=== PATIENT | male | born 1955 | race Caucasian/White ===

== ENCOUNTER → 2016-04-07 | Outpatient (CLI) | payer MEDICAID ==
[~2016-04-07] MED LIST: CHOLESTEROL MED; HCT25T PO; HYDR-3454 PO; IBP800T PO; MPR22T TP; PREG300C PO; SULF1TAB35 PO
--- OUTSIDE RECORDS SUMMARY | 2016-04-07 13:40 | XMS REPORT | Continuity of Care Document ---
Author Author [facility] Organization [facility] Address Unknown Phone Unavailable Care Team Providers Care Edge Burnisher Name Role Phone Mandi Pacheco PCP [phone] Source Comments Some departments are not documenting in the electronic medical record. If you do not see the information that you expected, contact Release of Information in the Health Information Management department at [phone] for further assistance in locating additional records.[facility] Active Allergies and Adverse Reactions No Known Allergies Current Medications Prescription Sig. Disp. Refills Start End Date Status Date HYDROcodone/acetaminophen Take 1 Tab by mouth every Active (NORCO; VICODIN) 5-325 mg 4 hours as needed for tablet Pain baclofen (LIORESAL) 10 mg Take 20 mg by mouth three Active tablet times daily. gabapentin (NEURONTIN) Take 800 mg by mouth Active 400 mg capsule three times daily. traZODone (DESYREL) 100 Take 100 mg by mouth at Active mg tablet bedtime daily. fish oil /omega-3 fatty Take 1 Cap by mouth Active acids (SEA-OMEGA) daily. 340/[address](+) Take 40 mg by mouth every Active (NEXIUM) 40 mg capsule morning. Active Problems Problem Noted Date Carpal tunnel syndrome on both sides 02/01/2015 Cervical stenosis of spine 01/05/2015 Facial pain, atypical 01/05/2015 Posterior neck pain 01/05/2015 Occipital neuralgia of left side 01/05/2015 Social History Tobacco Use Types Packs/Day Years Used Date Current Every Day Smoker Cigarettes 1 Smokeless Tobacco: Never Used Alcohol Use Drinks/Week oz/Week Comments Yes 0 Standard 0.0 rarely drinks or equivalent Last Filed Vital Signs Vital Sign Reading Time Taken Blood Pressure 127/77 07/10/2015 11:43 AM CDT Pulse 66 07/10/2015 11:43 AM CDT Temperature - - Respiratory Rate - - Height 1.829 m (6') 07/10/2015 11:43 AM CDT Weight 95.709 kg (211 lb) 07/10/2015 11:43 AM CDT Body Mass Index 28.61 07/10/2015 11:43 AM CDT Oxygen Saturation - - Plan of Care Health Maintenance Due Date Last Done Comments Hepatitis C Screening 1955 Physical (Comprehensive) 1961 Exam Pertussis Vaccine 1965 Tetanus Vaccine 11/16/1971 Colorectal Cancer 2004 Screening Shingles Vaccine 2014 Influenza Vaccine 10/11/2015 Results from Last 3 Months Not on file
--- NOTE | 2016-04-07 15:55 | Diagnostic Imaging Report ---
PROCEDURE: CT cervical spine without contrast. TECHNIQUE: Multiple contiguous axial images were obtained through the cervical spine without the use of intravenous contrast. Sagittal and coronal reformations were then performed. INDICATION: Neck pain. Status post fusion surgery. FINDINGS: There is straightening of the lordotic curvature in the cervical spine. Anterior fusion hardware is seen involving C5 through C7 vertebral bodies with anterior fusion disc cages placed at C5/6 and C6/7. No definite osseous fusion is seen at this time. The facet joints are also not fused. The hardware appears the intact. The vertebral body heights are preserved. There is mild disc height loss at C4/5 level. No widening of the predental space. Degenerative changes at the atlantodental joint with joint spurring seen. There are small posterior osteophytes at C5/6 and C6/7 levels with no significant spinal canal stenosis identified by this CT scan without intrathecal contrast. Uncovertebral and facet joint hypertrophy is seen. There is foraminal stenosis of dthxncnb-kz-nmihrh degree on the right side at C3/4, C4/5, and C5/6 levels. The left foramen demonstrate moderate stenosis at C3/4, mild stenosis at C4/5, and mild stenosis at C5/6 levels. IMPRESSION: 1. Post anterior fusion hardware placement involving the C5 through C7 levels with no definite osseous fusion seen at this time. 2. Neural foraminal narrowing, more prominent on the right side, is seen in the mid cervical spine levels. Dictated by: Dictated on workstation # [id number]
== END ==
LOC: RAD 13:37
PROVIDERS: ATTEND Orthopaedic Surgery Orthopaedic Surgery of the Spine
DX: Z48.89 Encounter for other specified surgical aftercare (principal); Z98.1 Arthrodesis status
CPT/HCPCS: 72125

== ENCOUNTER → 2019-05-13 | Outpatient (CLI) | payer MEDICAID ==
[~2019-05-13] MED LIST changes: -HYDR-3454 PO; +HYDR-3455 PO
--- NOTE | 2019-05-13 17:20 | Diagnostic Imaging Report ---
PROCEDURE: MRI left joint lower extremity without contrast. TECHNIQUE: Multiplanar, multisequence non contrast-enhanced MRI of the left lower extremity was accomplished. INDICATION: Left knee pain. FINDINGS: The anterior cruciate and posterior cruciate ligaments are intact. There is some edema both superficial and deep to the medial collateral ligament; however, it appears to be intact. The biceps femoris, fibular collateral, and iliotibial band are intact. The popliteus tendon remains intact. There is marked chondromalacia in the medial knee joint compartment. There is an oblique tear of the posterior horn of the medial meniscus. There is also pseudo-extrusion of the entire meniscus. Lateral meniscus is grossly normal in signal intensity and morphology. The quadriceps tendon and patellar tendons are intact. There is a small knee joint effusion. There is thinning of the articular cartilage in the lateral knee joint compartment; however, there are no areas of underlying marrow edema. Articular cartilage of the patella is relatively well maintained. 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 Pseudo-extrusion of the medial meniscus which also exhibits an oblique tear through the posterior horn of the medial meniscus. There is edema both superficial and deep to the medial collateral ligament. Small knee joint effusion. Otherwise mild diffuse degenerative change; however, no other significant internal derangement of the knee. Dictated by: Dictated on workstation # [id number]
== END ==
LOC: RAD 14:09
PROVIDERS: ATTEND Physician Assistant
DX: M17.12 Unilateral primary osteoarthritis, left knee (principal); M23.8X2 Other internal derangements of left knee; M25.462 Effusion, left knee
CPT/HCPCS: 73721

== ENCOUNTER → 2020-05-22 | Outpatient (CLI) | payer MEDICARE ==
[~2020-05-22] MED LIST changes: +CATHETER FLUSH 10 ML SYR IV PRN; +HOLD METFORMIN - RECEIVED CONTRAST 20 ML VIAL IV SCH; +IOHEXOL 350 MG/ML 100 ML (OMNIPAQUE 350) VIAL IV ONE; +NS 100 ML (IVPB) BAG IV ONE
[2020-05-22 08:03] LABS: BUN/CREATININE RATIO 11; CREATININE SERUM 1.16 MG/DL (0.60-1.30); GFR ESTIMATED > 60
--- NOTE | 2020-05-22 09:43 | Diagnostic Imaging Report ---
INDICATION: Abdominal aortic aneurysm follow-up. TECHNIQUE: Multiple contiguous axial images were obtained through the abdomen and pelvis after administration of intravenous contrast. 3D MIP reconstructions were made. Auto Exposure Controls were utilized during the CT exam to meet ALARA standards for radiation dose reduction. There is no prior study for comparison. FINDINGS: The visualized portions of the lung bases are clear. There were no pleural fluid collections. There is no free intraperitoneal air. The liver and gallbladder are normal. The spleen, adrenals, and pancreas are normal. Kidneys bilaterally show no hydronephrosis or focal lesions. There is no retroperitoneal mass or adenopathy. CTA images demonstrate the suprarenal aorta to be normal in caliber. The celiac trunk is patent with minor plaquing without significant stenosis. The SMA is also patent with minor plaquing, with no significant stenosis. There are single renal arteries bilaterally which are patent with mild plaquing. The inferior mesenteric artery appears fairly small but is patent. The infrarenal aorta is aneurysmal, with maximal diameter of 3.9 x 3.4 cm. The common iliac arteries show some eccentric plaquing but are not aneurysmal. The internal and external iliac arteries are patent with mild plaquing in the visualized portions. IMPRESSION: There are atherosclerotic changes of the aorta as well as a 3.9 x 3.4 cm aneurysm of the infrarenal segment. There is no evidence of iliac aneurysm. Major aortic branches show mild plaquing but no significant stenosis. There is no abdominal mass or abnormal fluid collection. Dictated by: Dictated on workstation # [id number]
== END ==
LOC: CARD 08:45
PROVIDERS: ATTEND Internal Medicine Cardiovascular Disease
DX: I71.4 Abdominal aortic aneurysm, without rupture (principal); I10 Essential (primary) hypertension
CPT/HCPCS: 36415; 74175; 82565; 84520; 93306

== ENCOUNTER 2020-08-21 11:20 | Emergency (ER) | payer MEDICARE ==
[~2020-08-21] VITALS: Ht 182 cm; Wt 107.0 kg
[~2020-08-21 11:20] MED LIST changes: -CATHETER FLUSH 10 ML SYR IV PRN; -HOLD METFORMIN - RECEIVED CONTRAST 20 ML VIAL IV SCH; -IOHEXOL 350 MG/ML 100 ML (OMNIPAQUE 350) VIAL IV ONE; -NS 100 ML (IVPB) BAG IV ONE; -SULF1TAB35 PO; +SULF1TAB38 PO
[2020-08-21 11:37] LABS: CLARITY,URINE CLOUDY; COLOR,URINE YELLOW; GLUCOSE, URINE (UA) NEGATIVE (NEGATIVE); KETONES,URINE NEGATIVE (NEGATIVE); LEUKOCYTE ESTERASE ,URINE NEGATIVE (NEGATIVE); NITRITE,URINE NEGATIVE (NEGATIVE); PROTEIN,URINE TRACE (NEGATIVE)
[2020-08-21] MEDS ORDERED: KETOROLAC 30 MG/ML VIAL IVP STA (11:37)
[2020-08-21] MEDS ORDERED: NS IV 1000 ML 1,000 ML IV STA (11:37)
--- NOTE | 2020-08-21 11:40 | ED Abdominal Pain ---
General Chief Complaint: Abdominal/GI Problems Stated Complaint: LLQ PAIN/TESTICLE/LT FLANK PAIN; URINARY URGENCY Source of Information: Patient History of Present Illness Date Seen by Provider: Aug 21, 2020 Time Seen by Provider: 11:24 Initial Comments 64-year-old male presenting with complaints of left flank pain. He states this came on suddenly at 830 this morning. He has history of kidney stones but has been since the 90s since he had one. He tried taking hydrocodone at home for the pain without any significant provement. He denies any fever or chills. He does have some pain radiating to his groin and testicle. He has urinary urgency. He denies any blood in his urine. Timing/Duration: 4-6 Hours Severity/Quality: Severe Location: LUQ, LLQ, Flank Radiation: LUQ, LLQ, Flank Activities at Onset: Sleeping Associated Symptoms: No Back Pain, No Chest Pain, No Diaphoresis, No Fever/Chills, No Fatigue, No Headache, No Heartburn; Nausea/Vomiting (nausea with severe pain but no actual vomiting); No Rash, No Shortness of Air, No Swelling/Mass in Abdomen, No Syncope, No Weakness Allergies and Home Medications Allergies Coded Allergies: Penicillins (Verified Allergy, Unknown, 11/21/13) Home Medications Hydrochlorothiazide 25 Mg Tablet, 12.5 MG PO DAILY, (Reported) Hydrocodone/Acetaminophen 1 Each Tablet, 1 EACH PO Q4H PRN for p Prescribed by: JACQUE SANCHEZ MD on 01/14/15 1301 Hydrocodone/Acetaminophen 1 Each Tablet, 1 EACH PO Q6H PRN for PAIN-SEVERE (8- 10) Prescribed by: REBEKA BALL on 08/21/20 1238 Mupirocin 22 Gm Tube, 0 TP DAILY APPLY TO SPARINGLY TO AFFECTED AREA(S) Prescribed by: LACHO ENAMORADO on 07/22/12 1621 Pregabalin 300 Mg Capsule, 300 MG PO BID, (Reported) Tamsulosin HCl 0.4 Mg Cap, 0.4 MG PO DAILY Prescribed by: REBEKA BALL on 08/21/20 1238 Patient Home Medication List Home Medication List Reviewed: Yes Review of Systems Review of Systems Constitutional: No chills, No fever EENTM: No Symptoms Reported Respiratory: No Symptoms Reported Cardiovascular: No Symptoms Reported Gastrointestinal: See HPI Genitourinary: See HPI Musculoskeletal: no symptoms reported Skin: no symptoms reported Psychiatric/Neurological: No Symptoms Reported Endocrine: No Symptoms Reported Hematologic/Lymphatic: No Symptoms Reported Past Qethdvj-Kobzxs-Lmfcta Hx Patient Social History Tobacco Use?: Yes Tobacco type used: Cigarettes Smoking Status: Current Everyday Smoker Use of E-Cig and/or Vaping dev: No Substance use?: No Alcohol Use?: No Pt feels they are or have been: No Immunizations Up To Date Tetanus Booster (TDap): Less than 5yrs Past Medical History Surgery/Hospitalization HX: AAA Sleep Apnea Reproductive Disorders: No Diabetes, Non-Insulin dep Family Medical History No Pertinent Family Hx Physical Exam Vital Signs Vital Signs - First Documented 08/21/20 11:28 Temp 35.9 Pulse 91 Resp 20 B/P (MAP) 145/100 (115) Pulse Ox 98 O2 Delivery Room Air Capillary Refill : Height/Weight/BMI Height: 5'10" Weight: 175lbs. oz. 79.098802wh; BMI Method:Estimated General Appearance: WD/WN, mild distress Respiratory: chest non-tender, lungs clear, normal breath sounds Cardiovascular: normal peripheral pulses, regular rate, rhythm Gastrointestinal: normal bowel sounds, soft, no pulsatile mass Rectal: deferred Extremities: normal range of motion, non-tender, normal capillary refill Back: no CVA tenderness Neurologic/Psychiatric: alert, oriented x 3 Skin: normal color, warm/dry; No rash Progress/Results/Core Measures Results/Orders Lab Results Laboratory Tests Test 08/21/20 11:30 08/21/20 11:35 Range/Units Urine Color YELLOW Urine Clarity CLOUDY Urine pH 6.0 5-9 Urine Specific [place] >=1.030 1.016-1.022 Urine Protein TRACE H NEGATIVE Urine Glucose (UA) NEGATIVE NEGATIVE Urine Ketones NEGATIVE NEGATIVE Urine Nitrite NEGATIVE NEGATIVE Urine Bilirubin 1+ H NEGATIVE Urine Urobilinogen 1.0 < = 1.0 MG/DL Urine Leukocyte Esterase NEGATIVE NEGATIVE Urine RBC (Auto) 3+ H NEGATIVE Urine RBC >100 H /HPF Urine WBC NONE /HPF Urine Squamous Epithelial Cells NONE /HPF Urine Crystals NONE /LPF Urine Bacteria NEGATIVE /HPF Urine Casts NONE /LPF Urine Mucus SMALL H /LPF Urine Culture Indicated NO White Blood Count 7.6 4.3-11.0 10^3/uL Red Blood Count 4.19 L 4.35-5.85 10^6/uL Hemoglobin 13.9 13.3-17.7 G/DL Hematocrit 41 40-54 % Mean Corpuscular Volume 97 80-99 FL Mean Corpuscular Hemoglobin 33 25-34 PG Mean Corpuscular Hemoglobin Concent 34 32-36 G/DL Red Cell Distribution Width 14.6 H 10.0-14.5 % Platelet Count 293 130-400 10^3/uL Mean Platelet Volume 8.7 7.4-10.4 FL Immature Granulocyte % (Auto) 0 % Neutrophils (%) (Auto) 50 42-75 % Lymphocytes (%) (Auto) 39 12-44 % Monocytes (%) (Auto) 7 0-12 % Eosinophils (%) (Auto) 3 0-10 % Basophils (%) (Auto) 1 0-10 % Neutrophils # (Auto) 3.8 1.8-7.8 X 10^3 Lymphocytes # (Auto) 2.9 1.0-4.0 X 10^3 Monocytes # (Auto) 0.6 0.0-1.0 X 10^3 Eosinophils # (Auto) 0.2 0.0-0.3 10^3/uL Basophils # (Auto) 0.1 0.0-0.1 10^3/uL Immature Granulocyte # (Auto) 0.0 0.0-0.1 10^3/uL Sodium Level 137 135-145 MMOL/L Potassium Level 4.1 3.6-5.0 MMOL/L Chloride Level 103 98-107 MMOL/L Carbon Dioxide Level 25 21-32 MMOL/L Anion Gap 9 5-14 MMOL/L Blood Urea Nitrogen 20 H 7-18 MG/DL Creatinine 0.95 0.60-1.30 MG/DL Estimat Glomerular Filtration Rate > 60 BUN/Creatinine Ratio 21 Glucose Level 173 H 70-105 MG/DL Calcium Level 10.2 H 8.5-10.1 MG/DL Corrected Calcium 10.0 8.5-10.1 MG/DL Total Bilirubin 0.2 0.1-1.0 MG/DL Aspartate Amino Transf (AST/SGOT) 13 5-34 U/L Alanine Aminotransferase (ALT/SGPT) 10 0-55 U/L Alkaline Phosphatase 59 40-136 U/L Total Protein 7.1 6.4-8.2 GM/DL Albumin 4.3 3.2-4.5 GM/DL Lipase 24 8-78 U/L My Orders Orders - REBEKA BALL MD Comprehensive Metabolic Panel (08/21/20 11:26) Lipase (08/21/20 11:26) Ua Culture If Indicated (08/21/20 11:26) Ed Iv/Invasive Line Start (08/21/20 11:26) Cbc With Automated Diff (08/21/20 11:26) Ct Abd/Pelvis Wo(Kidney Stone) (08/21/20 11:37) Ketorolac Injection (Toradol Injection) (08/21/20 11:37) Ns Iv 1000 Ml (Sodium Chloride 0.9%) (08/21/20 11:37) Strain Urine (08/21/20 12:31) Vital Signs/I&O 08/21/20 08/21/20 11:28 12:45 Temp 35.9 35.9 Pulse 91 84 Resp 20 20 B/P (MAP) 145/100 (115) 140/92 Pulse Ox 98 98 O2 Delivery Room Air Progress Progress Note #1: Progress Note Patient complains of pain in the left flank and has a history of urinary tract infections and stones. Will obtain a urinalysis as well as labs. Give Toradol for pain. Obtain CT scan to evaluate for kidney stone. Differential diagnosis includes kidney stone with renal colic, diverticulitis, colitis, gastroenteritis, UTI, abdominal muscle strain Progress Note #2: Progress Note Patient reports improved pain after Toradol. His urine did show blood but no definite infection. His CT scan showed a 2 mm stone that was in the distal ureter by the bladder. Counseled on follow-up and return precautions. Since he had already been taking hydrocodone with little to no improvement will prescribe Flomax and a stronger dose of hydrocodone. Counseled to follow-up and return for worsening symptoms Diagnostic Imaging Diagonstic Imaging: CT Plain Films/CT/US/NM/MRI: abdomen, pelvis Comments NAME: JUNIOR ALLEN [facility] REC#: [id number] PT STATUS: REG ER : 1955 PHYSICIAN: REBEKA BALL MD ADMIT DATE: 08/21/20/ER FS Draft Date of Exam:08/21/20 CT ABD/PELVIS WO(KIDNEY STONE) PROCEDURE: CT urinary tract, rule out kidney stone. TECHNIQUE: Multiple contiguous axial images were obtained through the abdomen and pelvis without the use of intravenous contrast. Auto Exposure Controls were utilized during the CT exam to meet ALARA standards for radiation dose reduction. INDICATION: Left flank pain. COMPARISON: CT angiogram abdomen dated 05/22/2020. FINDINGS: There is a punctate 2 mm stone in the distal aspect of the left ureterovesical junction nearly passed into the urinary bladder lumen. This results in mild left upstream hydroureteronephrosis and minimal stranding of the left periureteric fat. There are additional nonobstructing bilateral intrarenal calculi. The largest on the right is in a mid pole calyx at 2 mm. No urinoma or fluid collection. The liver, gallbladder, bile ducts, spleen, adrenals, and pancreas are all negative. There is atherosclerotic infrarenal aortic aneurysmal dilatation, unruptured, measuring an unchanged 3.9 cm in AP dimension. There is noninflamed colonic and sigmoid diverticulosis. The remaining solid and hollow viscera are unremarkable. IMPRESSION: 1. A 2 mm stone in the left UVJ results in mild upstream left-sided hydroureteronephrosis. Additional small punctate intrarenal calculi bilaterally are nonobstructing. 2. Stable caliber of unruptured fusiform infrarenal abdominal aortic aneurysm at 3.9 cm. 3. Noninflamed chronic diverticulosis. Dictated on workstation # [id number] Dict: 08/21/20 1155 Trans: 08/21/20 1205 [id number] Interpreted by: DUKE BERNARD Electronically signed by: Departure Impression Primary Impression: Calculus of distal left ureter Additional Impression: Renal colic on left side Disposition: 01 HOME, SELF-CARE Condition: Improved Departure-Patient Inst. Decision time for Depature: 12:39 Referrals: [facility] (PCP/Family) Primary Care Physician Patient Instructions: Kidney Stone Diet, How to Strain Your Urine, Kidney Stone, Adult ED Add. Discharge Instructions: Stay well hydrated and take Flomax (Tamsulosin) once a day to help with passing your kidney stone. Take the higher strength Hydrocodone for severe pain if needed. Check back with Dr. Ball for continued issues with pain and kidney stones. See your primary provider for further concerns. Strain your urine to see when you pass the stone. All discharge instructions reviewed with patient and/or family. Voiced understanding. Scripts Tamsulosin HCl (Flomax) 0.4 Mg Cap 0.4 MG PO DAILY for renal colic for 5 Days, #5 CAP 0 Refills Prov: REBEKA BALL MD 08/21/20 Hydrocodone/Acetaminophen (Hydrocodone-Acetamin 10-325 mg) 1 Each Tablet 1 EACH PO Q6H PRN for PAIN-SEVERE (8-10) for 3 Days, #12 TAB 0 Refills Prov: REBEKA BALL MD 08/21/20 REBEKA BALL MD Aug 21, 2020 11:40
[2020-08-21 11:47] LABS: BACTERIA,URINE NEGATIVE /HPF; RBC,URINE >100 /HPF
[2020-08-21 11:49] LABS: BASOPHILS % (AUTO) 1 % (0-10); EOSINOPHILS # (AUTO) 0.2 10^3/uL (0.0-0.3); EOSINOPHILS % (AUTO) 3 % (0-10); HEMATOCRIT 41 % (40-54); HEMOGLOBIN 13.9 G/DL (13.3-17.7); LYMPHOCYTES # (AUTO) 2.9 X 10^3 (1.0-4.0); LYMPHOCYTES % (AUTO) 39 % (12-44); MEAN CORPUSCULAR HEMOGLOBIN 33 PG (25-34); MEAN CORPUSCULAR HGB CONC 34 G/DL (32-36); MEAN CORPUSCULAR VOLUME 97 FL (80-99); MEAN PLATELET VOLUME 8.7 FL (7.4-10.4); MONOCYTES # (AUTO) 0.6 X 10^3 (0.0-1.0); MONOCYTES % (AUTO) 7 % (0-12); NEUTROPHILS # (AUTO) 3.8 X 10^3 (1.8-7.8); NEUTROPHILS % (AUTO) 50 % (42-75); PLATELET COUNT 293 10^3/uL (130-400); WHITE BLOOD COUNT 7.6 10^3/uL (4.3-11.0)
[2020-08-21 11:50] LABS: BASOPHILS # (AUTO) 0.1 10^3/uL (0.0-0.1)
[2020-08-21 12:05] LABS: BILIRUBIN,URINE 1+ (NEGATIVE)
--- NOTE | 2020-08-21 12:06 | Diagnostic Imaging Report ---
PROCEDURE: CT urinary tract, rule out kidney stone. TECHNIQUE: Multiple contiguous axial images were obtained through the abdomen and pelvis without the use of intravenous contrast. Auto Exposure Controls were utilized during the CT exam to meet ALARA standards for radiation dose reduction. INDICATION: Left flank pain. COMPARISON: CT angiogram abdomen dated 05/22/2020. FINDINGS: There is a punctate 2 mm stone in the distal aspect of the left ureterovesical junction nearly passed into the urinary bladder lumen. This results in mild left upstream hydroureteronephrosis and minimal stranding of the left periureteric fat. There are additional nonobstructing bilateral intrarenal calculi. The largest on the right is in a mid pole calyx at 2 mm. No urinoma or fluid collection. The liver, gallbladder, bile ducts, spleen, adrenals, and pancreas are all negative. There is atherosclerotic infrarenal aortic aneurysmal dilatation, unruptured, measuring an unchanged 3.9 cm in AP dimension. There is noninflamed colonic and sigmoid diverticulosis. The remaining solid and hollow viscera are unremarkable. IMPRESSION: 1. A 2 mm stone in the left UVJ results in mild upstream left-sided hydroureteronephrosis. Additional small punctate intrarenal calculi bilaterally are nonobstructing. 2. Stable caliber of unruptured fusiform infrarenal abdominal aortic aneurysm at 3.9 cm. 3. Noninflamed chronic diverticulosis. Dictated by: Dictated on workstation # [id number]
[2020-08-21 12:09] LABS: ALANINE AMINOTRANSFERASE 10 U/L (0-55); ALKALINE PHOSPHATASE 59 U/L (40-136); BILIRUBIN,TOTAL 0.2 MG/DL (0.1-1.0); BUN/CREATININE RATIO 21; CALCIUM 10.2 MG/DL (8.5-10.1); CARBON DIOXIDE 25 MMOL/L (21-32); CHLORIDE 103 MMOL/L (98-107); CREATININE SERUM 0.95 MG/DL (0.60-1.30); GFR ESTIMATED > 60; GLUCOSE 173 MG/DL (70-105); POTASSIUM 4.1 MMOL/L (3.6-5.0); SODIUM 137 MMOL/L (135-145)
[2020-08-21 12:10] LABS: ALBUMIN 4.3 GM/DL (3.2-4.5); TOTAL PROTEIN 7.1 GM/DL (6.4-8.2)
[2020-08-21] MEDS ORDERED: HYDR-3820 PO (12:38)
[2020-08-21] MEDS ORDERED: TMSL.4C PO (12:38)
[2020-08-21 12:45] VITALS: BP 140/92
[2020-08-21 12:47] LABS: LIPASE 24 U/L (8-78)
== END 2020-08-21 12:46 | disposition home or self-care (01) ==
LOC: EDUNIT# 11:20 → ER FS 11:23
DX: N13.2 Hydronephrosis with renal and ureteral calculous obstruction (principal); N23 Unspecified renal colic; G47.30 Sleep apnea, unspecified; E11.9 Type 2 diabetes mellitus without complications; F17.210 Nicotine dependence, cigarettes, uncomplicated
CPT/HCPCS: 36415; 74176; 80053; 81000; 83690; 85025

== ENCOUNTER → 2020-08-30 | Outpatient (CLI) | payer MEDICARE ==
[~2020-08-30] MED LIST changes: +HYDR-3820 PO; +TMSL.4C PO
--- NOTE | 2020-08-30 13:54 | Diagnostic Imaging Report ---
INDICATION: Left-sided stone disease. FINDINGS: Radiopaque calcifications project over the bilateral kidneys. There are likely some left renal artery atherosclerotic vascular calcifications as well. The bowel gas pattern is normal. There are atherosclerotic pelvic vascular calcifications as well as a new calcification in the left hemipelvis measuring 3.4 mm in cephalocaudal length. Given its appearance compared to the prior, a distal migration of the left ureteral stone is suspected; correlate clinically. IMPRESSION: 1. Bilateral nephrolithiasis and atherosclerosis. 2. New left pelvic calcification, 3.5 mm, is suspicious for a distal left ureteral stone. Dictated by: Dictated on workstation # [id number]
== END ==
LOC: RAD 12:59
PROVIDERS: ATTEND Urology
DX: N20.2 Calculus of kidney with calculus of ureter (principal); I70.1 Atherosclerosis of renal artery; M61.9 Calcification and ossification of muscle, unspecified
CPT/HCPCS: 74018

== ENCOUNTER → 2022-02-26 | Outpatient (CLI) | payer MEDICARE, MEDICAID ==
--- NOTE | 2022-02-26 12:19 | Diagnostic Imaging Report ---
PROCEDURE: CT lumbar spine without contrast. TECHNIQUE: Multiple contiguous axial images were obtained through the lumbar spine without the use of intravenous contrast. Sagittal and coronal reformations were then performed. Auto Exposure Controls were utilized during the CT exam to meet ALARA standards for radiation dose reduction. INDICATION: Lumbar fusion. Low back pain radiating into right hip. COMPARISON: None. FINDINGS: Grade 1 retrolisthesis of L1 on L2, L2 on L3 and L3 on L4. Vertebral body heights preserved. No acute fractures. Chronic right L3 and L4 transverse process fractures. Visualized pelvis is intact. Bilateral carlos and pedicle screw fixation with interbody fusion at L5-S1. There is also a left foraminotomy at this level. Hardware components are intact. No evidence of loosening. Spondylotic changes likely result in at least moderate spinal canal stenosis at L3-L4 and L4-L5. There is also high-grade bilateral neural foraminal narrowing L4-L5 and on the right at L3-L4. Infrarenal abdominal aortic aneurysm measures at least 4.0 cm in diameter, partially visualized. Moderate atherosclerotic calcifications. Nonobstructing calyceal tip renal stones in the partially visualized right kidney. IMPRESSION: 1. Bilateral carlos and pedicle screw fixation with interbody fusion and left foraminotomy at L5-S1. No evidence hardware failure. 2. Spondylotic changes likely result in high-grade spinal canal stenosis at L3-L4 and L4-L5. Scattered high-grade neural foraminal narrowing. This could be better evaluated with MRI. 3. Infrarenal abdominal aortic aneurysm is partially visualized but measures at least 4.0 cm in diameter. Dictated by: Dictated on workstation # [id number]
== END ==
LOC: RAD 11:04
PROVIDERS: ATTEND Physician Assistant
DX: M47.816 Spondylosis without myelopathy or radiculopathy, lumbar region (principal); M48.02 Spinal stenosis, cervical region; I71.43 Infrarenal abdominal aortic aneurysm, without rupture; Z98.1 Arthrodesis status
CPT/HCPCS: 72131

== ENCOUNTER 2022-03-05 14:29 | Emergency (ER) | payer MEDICARE, MEDICAID ==
--- NOTE | 2022-03-05 16:20 | ED Back Pain ---
General Chief Complaint: Back Problems Stated Complaint: LOWER BACK PAIN Nursing Triage Note: PT AMB TO TRIAGE WITH C/O LOW BACK PAIN THAT STARTED THURSDAY AT HOME. PT STATES IT STATED ON THE L SIDE AND NOW ITS ON THE R SIDE. PT STATES THERE WAS A KNOT ON THE R SIDE YESTERDAY BUT IT IS GONE TODAY Source of Information: Patient History of Present Illness Date Seen by Provider: Mar 05, 2022 Time Seen by Provider: 16:08 Initial Comments PT ARRIVES VIA POV FROM HOME, USING A WALKER TO AMBULATE C/O LOW BACK PAIN PT HAD LUMBAR SPINE SURGERY 08/2021, AND HAS HAD A CT SCAN DONE RECENTLY FOR INCREASED PAIN PT HAS HAD INCREASED PAIN SINCE THURSDAY--STATES "IT FEELS LIKE THE BONES ARE RUBBING AGAINST EACH OTHER" HE TOOK 1 HYDROCODONE 5/325 THIS AM, AND 1 HYDROCODONE 10/325 PRIOR TO ARRIVAL. NO PARESTHESIAS OR MOTOR DEFICITS NO LOSS OF BOWEL OR BLADDER FUNCTION. CT SCAN DONE OUTPATIENT 02/26/22: COMPARISON: None. FINDINGS: Grade 1 retrolisthesis of L1 on L2, L2 on L3 and L3 on L4. Vertebral body heights preserved. No acute fractures. Chronic right L3 and L4 transverse process fractures. Visualized pelvis is intact. Bilateral carlos and pedicle screw fixation with interbody fusion at L5-S1. There is also a left foraminotomy at this level. Hardware components are intact. No evidence of loosening. Spondylotic changes likely result in at least moderate spinal canal stenosis at L3-L4 and L4-L5. There is also high-grade bilateral neural foraminal narrowing L4-L5 and on the right at L3-L4. Infrarenal abdominal aortic aneurysm measures at least 4.0 cm in diameter, partially visualized. Moderate atherosclerotic calcifications. Nonobstructing calyceal tip renal stones in the partially visualized right kidney. IMPRESSION: 1. Bilateral carlos and pedicle screw fixation with interbody fusion and left foraminotomy at L5-S1. No evidence hardware failure. 2. Spondylotic changes likely result in high-grade spinal canal stenosis at L3-L4 and L4-L5. Scattered high-grade neural foraminal narrowing. This could be better evaluated with MRI. 3. Infrarenal abdominal aortic aneurysm is partially visualized but measures at least 4.0 cm in diameter. Other Comments PCP: ASHLEY-SHEKHAR, DR. MARRERO. Allergies and Home Medications Allergies Coded Allergies: Penicillins (Verified Allergy, Unknown, 11/21/13) Patient Home Medication List Home Medication List Reviewed: Yes Hydrochlorothiazide (Hydrochlorothiazide) 25 Mg Tablet, 12.5 MG PO DAILY, (Reported) Entered as Reported by: HEVER LAMA on 07/07/12 1431 Hydrocodone/Acetaminophen (Vicodin 5-300 mg Tablet) 1 Each Tablet, 1 EACH PO Q4H PRN for p Prescribed by: JACQUE SANCHEZ MD on 01/14/15 1301 Hydrocodone/Acetaminophen (Hydrocodone-Acetamin 10-325 mg) 1 Each Tablet, 1 EACH PO Q6H PRN for PAIN-SEVERE (8-10) Prescribed by: REBEKA BALL on 08/21/20 1238 Mupirocin (Bactroban Ointment 22 Gm) 22 Gm Tube, 0 TP DAILY Prescribed by: LACHO ENAMORADO on 07/22/12 1621 Pregabalin (Lyrica) 300 Mg Capsule, 300 MG PO BID, (Reported) Entered as Reported by: RANJIT VERA on 07/22/12 1420 Tamsulosin HCl (Flomax) 0.4 Mg Cap, 0.4 MG PO DAILY Prescribed by: REBEKA BALL on 08/21/20 1238 [Cholesterol Med] , (Reported) Entered as Reported by: RANJIT VERA on 07/22/12 1422 Review of Systems Constitutional: no symptoms reported Genitourinary: no symptoms reported Musculoskeletal: see HPI Skin: no symptoms reported Psychiatric/Neurological: No Symptoms Reported Past Uoccdey-Xtzycq-Pxbxag Hx Patient Social History Tobacco Use?: Yes Tobacco type used: Cigarettes Substance use?: No Alcohol Use?: Yes Alcohol Frequency: Rarely Pt feels they are or have been: No Immunizations Up To Date Tetanus Booster (TDap): Less than 5yrs Influenza Vaccine Up-to-Date: Yes; Up-to-Date First/Initial COVID19 Vaccinat: yes Second COVID19 Vaccination Salvador: yes Third COVID19 Vaccination Date: yes Past Medical History Surgery/Hospitalization HX: AAA back surgery Surgeries: Yes (BACK SURGERY; C-SPINE SURGERY) Orthopedic Respiratory: Yes Sleep Apnea Cardiac: Yes (AAA 4 CM DIAMETER 02/26/22) Aneurysm, Hypertension Neurological: No Reproductive Disorders: No Genitourinary: No Gastrointestinal: No Musculoskeletal: Yes Degenerate Disk Disease, Chronic Back Pain Endocrine: Yes Diabetes, Non-Insulin dep HEENT: No Cancer: No Psychosocial: No Integumentary: No Blood Disorders: No Family Medical History No Pertinent Family Hx Physical Exam Vital Signs Vital Signs - First Documented 03/05/22 03/05/22 14:45 18:05 Temp 36.8 Pulse 90 Resp 18 B/P (MAP) 140/89 (106) O2 Delivery Room Air Capillary Refill : Height, Weight, BMI Height: 5'10" Weight: 175lbs. oz. 79.531931ua; 32.00 BMI Method:Estimated General Appearance: No Apparent Distress, WD/WN, Other (TALKS NON-STOP AT GREAT LENGTH. ) Neck: Normal Inspection Cardiovascular: Regular Rate, Rhythm Respiratory: Normal Breath Sounds Gastrointestinal: Non Tender Back: Decreased Range of Motion, Other (DIFFUSE LOWER BACK TENDERNESS) Extremity: Normal Capillary Refill, Non Tender Neurologic/Psychiatric: Alert, Oriented x3, No Motor/Sensory Deficits, entry level lab technician II- XII Norm as Tested Skin: Normal Color, Warm/Dry; No Rash Progress/Results/Core Measures Results/Orders Lab Results Laboratory Tests Test 03/05/22 16:16 Range/Units Urine Color YELLOW Urine Clarity CLEAR Urine pH 6.0 5-9 Urine Specific [place] 1.025 H 1.016-1.022 Urine Protein NEGATIVE NEGATIVE Urine Glucose (UA) NEGATIVE NEGATIVE Urine Ketones NEGATIVE NEGATIVE Urine Nitrite NEGATIVE NEGATIVE Urine Bilirubin NEGATIVE NEGATIVE Urine Urobilinogen 0.2 < = 1.0 MG/DL Urine Leukocyte Esterase NEGATIVE NEGATIVE Urine RBC (Auto) NEGATIVE NEGATIVE Urine RBC NONE /HPF Urine WBC RARE /HPF Urine Squamous Epithelial Cells NONE /HPF Urine Crystals NONE /LPF Urine Bacteria NEGATIVE /HPF Urine Casts NONE /LPF Urine Mucus NEGATIVE /LPF Urine Culture Indicated NO My Orders Orders - GABRIEL LIMA DO Ua Culture If Indicated (03/05/22 16:09) Ct Lumbar Spine Wo (03/05/22 16:50) Vital Signs/I&O 03/05/22 03/05/22 14:45 18:05 Temp 36.8 36.8 Pulse 90 90 Resp 18 18 B/P (MAP) 140/89 (106) 140/89 O2 Delivery Room Air Blood Pressure Mean: 106 Progress Progress Note : Progress Note PT IS ADAMANTLY DEMANDING A REPEAT CT SCAN, EVEN THOUGH HE HAD ONE LAST WEEK. UNEVENTFUL ER STAY REVIEWED PRIOR RECORDS--ALL ARE ER VISITS. ALSO REVIEWED OUTPATIENT TESTS REVIEWED TEST RESULTS WITH PT AND FEMALE WITH HIM DISCUSSED ANTICIPATED COURSE, MEDICATIONS, NEED FOR FOLLOW UP AND RETURN PREC AUTIONS. PT STATES HE HAS PAIN MEDICATION AND MUSCLE RELAXANTS AT HOME Diagnostic Imaging Comments CT LUMBAR SPINE--PER RADIOLOGIST REPORT AT 1801 COMPARISON: 02/26/2022. FINDINGS: Again seen are bilateral interpedicular screws and intervening rods extending from L5 to S1. Interbody device is noted at the disc space. The orthopedic hardware appears intact. Multilevel bilateral facet hypertrophy similar to the recent examination. Old right L3 and L4 transverse process fractures again noted. There is multilevel spondylotic change with at least moderate central canal stenosis at the L3-L4 and L4-L5 levels. There is severe bilateral neural foraminal narrowing at the L4-L5 level and on the right at L3-L4. Within the visualized intra-abdominal structures is diffuse atherosclerotic disease. Again noted is aneurysmal dilatation of the infrarenal aorta. As visualized, it measures at least 3.5 cm in AP dimension, it previously measured 4 cm, given the incomplete visualization on today's examination. IMPRESSION: 1. Multilevel degenerative findings as detailed above similar to the recent examination with no acute process appreciated. Postoperative changes unremarkable. 2. Aneurysmal dilatation of the infrarenal aorta incompletely imaged. Reviewed: Reviewed by Me Departure Impression Primary Impression: Exacerbation of chronic back pain Disposition: HOME, SELF-CARE Condition: Stable Departure-Patient Inst. Decision time for Depature: 18:02 Referrals: SENIA MARRERO DO (PCP/Family) Primary Care Physician Patient Instructions: CHRONIC PAIN, Low Back Pain ED Add. Discharge Instructions: CONTINUE YOUR CURRENT MEDICATIONS PRESCRIBED FOLLOW UP WITH YOUR SURGEON THIS WEEK FOR FURTHER CARE--CALL IN THE MORNING FOR AN APPOINTMENT All discharge instructions reviewed with patient and/or family. Voiced understanding. GABRIEL LIMA DO Mar 05, 2022 16:20
[2022-03-05 16:23] LABS: BILIRUBIN,URINE NEGATIVE (NEGATIVE); CLARITY,URINE CLEAR; COLOR,URINE YELLOW; GLUCOSE, URINE (UA) NEGATIVE (NEGATIVE); KETONES,URINE NEGATIVE (NEGATIVE); LEUKOCYTE ESTERASE ,URINE NEGATIVE (NEGATIVE); NITRITE,URINE NEGATIVE (NEGATIVE); PROTEIN,URINE NEGATIVE (NEGATIVE)
[2022-03-05 16:33] LABS: BACTERIA,URINE NEGATIVE /HPF; WBC,URINE RARE /HPF
--- NOTE | 2022-03-05 17:28 | Diagnostic Imaging Report ---
INDICATION: Low back pain since Thursday, initially left-sided now bilateral. EXAMINATION: Lumbar spine CT, 03/05/2022. All CT scans use one or more of the following dose optimizing techniques: automated exposure control, MA and/or KvP adjustment based on patient size and exam type or iterative reconstruction. COMPARISON: 02/26/2022. FINDINGS: Again seen are bilateral interpedicular screws and intervening rods extending from L5 to S1. Interbody device is noted at the disc space. The orthopedic hardware appears intact. Multilevel bilateral facet hypertrophy similar to the recent examination. Old right L3 and L4 transverse process fractures again noted. There is multilevel spondylotic change with at least moderate central canal stenosis at the L3-L4 and L4-L5 levels. There is severe bilateral neural foraminal narrowing at the L4-L5 level and on the right at L3-L4. Within the visualized intra-abdominal structures is diffuse atherosclerotic disease. Again noted is aneurysmal dilatation of the infrarenal aorta. As visualized, it measures at least 3.5 cm in AP dimension, it previously measured 4 cm, given the incomplete visualization on today's examination. IMPRESSION: 1. Multilevel degenerative findings as detailed above similar to the recent examination with no acute process appreciated. Postoperative changes unremarkable. 2. Aneurysmal dilatation of the infrarenal aorta incompletely imaged. Dictated by: Dictated on workstation # [id number]
[2022-03-05 18:05] VITALS: BP 140/89
== END 2022-03-05 18:05 | disposition home or self-care (01) ==
LOC: EDUNIT# 14:29 → ER 14:32
DX: M54.50 Low back pain, unspecified (principal); G89.29 Other chronic pain; F17.210 Nicotine dependence, cigarettes, uncomplicated; Z98.890 Other specified postprocedural states
CPT/HCPCS: 72131; 81000

== ENCOUNTER → 2022-03-14 | Outpatient (CLI) | payer MEDICARE, MEDICAID ==
--- NOTE | 2022-03-14 12:05 | Diagnostic Imaging Report ---
PROCEDURE: MRI lumbar spine. TECHNIQUE: Multiplanar, multisequence MRI of the lumbar spine was performed without contrast. DATE: March 14, 2022. COMPARISON: CT lumbar spine March 05, 2022. INDICATION: 66-year-old male, low back pain. FINDINGS: There is posterior spinal fusion hardware spanning L5-S1. There is disc spacer material at this level. There is no evidence of a diffuse marrow infiltrating or replacing process. There are multilevel endplate degenerative related signal changes. There is mild disc height loss at L1-L2 and L2-L3 as well as at L3-L4 and L4-L5. There is moderate disc height loss at L5-S1. The visualized cord and conus medullaris is unremarkable and terminates at the L1 level. L1-L2: There is mild diffuse disc bulge eccentric to the right. The facet joints and ligamentum flavum are unremarkable. There is no foraminal narrowing. There is no spinal canal stenosis. L2-L3: There is diffuse disc bulge. There is a superimposed right lateral recess disc extrusion causing severe narrowing of the right lateral recess. The facet joints and ligamentum flavum are unremarkable. There is mild right foraminal narrowing. There is moderate spinal canal stenosis. L3-L4: There is diffuse disc bulge. There are bilateral facet degenerative changes without ligamentum flavum hypertrophy. There is moderate to severe bilateral foraminal narrowing. There is no high-grade spinal canal stenosis. L4-L5: There is diffuse disc bulge. There is an annular tear. There is mild narrowing of both lateral recesses. The facet joints and ligamentum flavum are unremarkable. There is moderate to severe bilateral foraminal narrowing. There is mild spinal canal stenosis. L5-S1: There is no disc bulge. The facet joints and ligamentum flavum are unremarkable. There is mild right and moderate to severe left foraminal narrowing. There is no spinal canal stenosis. IMPRESSION: 1. Multilevel disc and facet degenerative changes of the lumbar spine as described in detail level by level above. 2. No identified compression deformity, fracture, or focal concerning bone lesion. Dictated by: Dictated on workstation # [id number]
== END ==
LOC: RAD 07:31
PROVIDERS: ATTEND Orthopaedic Surgery Orthopaedic Surgery of the Spine
DX: M47.816 Spondylosis without myelopathy or radiculopathy, lumbar region (principal); M48.07 Spinal stenosis, lumbosacral region; M51.26 Other intervertebral disc displacement, lumbar region; G89.18 Other acute postprocedural pain
CPT/HCPCS: 72148

== ENCOUNTER → 2022-04-18 | Outpatient (CLI) | payer MEDICARE, MEDICAID ==
--- NOTE | 2022-04-18 11:17 | Diagnostic Imaging Report ---
Indication: Abdominal aortic aneurysm screening Abdominal aortic sonography performed in routine fashion The distal aorta is aneurysmal, with maximal diameter 4.1 x 3.4 cm. Visualized portions of the iliac vessels are not aneurysmal. IMPRESSION: Abdominal aortic aneurysm in the infrarenal segment, with maximal diameter of 4.1 x 3.4 cm. Recommend follow-up to exclude growth, consider follow-up in 6-12 months. Dictated by: Dictated on workstation # [id number]
== END ==
LOC: RAD 09:25
PROVIDERS: ATTEND Physician Assistant
DX: I71.40 Abdominal aortic aneurysm, without rupture, unspecified (principal)
CPT/HCPCS: 76775

== ENCOUNTER 2022-05-16 09:34 | Emergency (ER) | payer MEDICARE, MEDICAID ==
[~2022-05-16] VITALS: Ht 180 cm; Wt 102.7 kg
[2022-05-16] MEDS ORDERED: TRM50T PO ×2 (10:19→10:33)
[2022-05-16] MEDS ORDERED: CYCL5TAB PO ×2 (10:20→10:34)
--- NOTE | 2022-05-16 10:21 | ED General ---
General Chief Complaint: Hip/Pelvic Problems Stated Complaint: RT HIP AND RT KNEE PAIN | NON-INJ Nursing Triage Note: PT REPORTS TO ED WITH C/O RIGHT HIP AND KNEE PAIN. STATES HIP PAIN STARTED TWO WEEKS AGO AND RIGHT KNEE ABOUT FOUR DAYS AGO. DENIES KNOWN INJURY. HX OF BACK SURGERY. PT HAD TO START USING A WALKER TO GET AROUND. PT AMB. TO FT1 WITH WALKER. Source of Information: Patient Exam Limitations: No Limitations History of Present Illness Date Seen by Provider: May 16, 2022 Time Seen by Provider: 10:05 Initial Comments 66-year-old male presents to the emergency department today for right hip and low back pain. Symptoms present for about 2 weeks acute worse however he tells me he has had the symptoms off and on for several months. In August he had back surgery for similar symptoms. He states he was seen here about a month ago and had a CT scan which showed stenosis above the level of his previous surgery. This was mild and he is followed up with orthopedics since that time. He has had similar pains in symptoms since that time however symptoms acutely worsen the last 2 weeks. He is taking hydrocodone at home without much relief. He tells me he is also on gabapentin. No new injuries. No loss of bowel or bladder control. No saddle anesthesia. He describes his symptoms as pain in his low back with sharp shooting pains into his right hip and groin intermittently that lasts only a few seconds. He thinks he tweaked his knee a little last week when he was walking and has pain there as well but this is a separate issue from that of his hip. He has been ambulatory since that event. All other systems reviewed and negative except documented per HPI. Voice recognition software was used to help create this chart Allergies and Home Medications Allergies Coded Allergies: Penicillins (Verified Allergy, Unknown, 11/21/13) Patient Home Medication List Home Medication List Reviewed: Yes Hydrochlorothiazide (Hydrochlorothiazide) 25 Mg Tablet, 12.5 MG PO DAILY, (Reported) Entered as Reported by: HEVER LAMA on 07/07/12 1431 Hydrocodone/Acetaminophen (Vicodin 5-300 mg Tablet) 1 Each Tablet, 1 EACH PO Q4H PRN for p Prescribed by: JACQUE SANCHEZ MD on 01/14/15 1301 Hydrocodone/Acetaminophen (Hydrocodone-Acetamin 10-325 mg) 1 Each Tablet, 1 EACH PO Q6H PRN for PAIN-SEVERE (8-10) Prescribed by: REBEKA BALL on 08/21/20 1238 Mupirocin (Bactroban Ointment 22 Gm) 22 Gm Tube, 0 TP DAILY Prescribed by: LACHO ENAMORADO on 07/22/12 1621 Pregabalin (Lyrica) 300 Mg Capsule, 300 MG PO BID, (Reported) Entered as Reported by: RANJIT VERA on 07/22/12 1420 Tamsulosin HCl (Flomax) 0.4 Mg Cap, 0.4 MG PO DAILY Prescribed by: REBEKA BALL on 08/21/20 1238 [Cholesterol Med] , (Reported) Entered as Reported by: RANJIT VERA on 07/22/12 1422 Review of Systems Review of Systems Constitutional: see HPI Past Wjoaith-Kbcxtt-Tnslrw Hx Patient Social History Tobacco Use?: Yes Tobacco type used: Cigarettes Smoking Status: Current Everyday Smoker Use of E-Cig and/or Vaping dev: No Substance use?: No Alcohol Use?: No Pt feels they are or have been: No Immunizations Up To Date Tetanus Booster (TDap): Less than 5yrs First/Initial COVID19 Vaccinat: yes Second COVID19 Vaccination [place]: yes Third COVID19 Vaccination Date: yes COVID19 Vaccine Assessment Specialist: dotSyntax Past Medical History Surgery/Hospitalization HX: AAA back surgery Surgeries: Yes (BACK SURGERY; C-SPINE SURGERY) Orthopedic Respiratory: Yes Sleep Apnea Cardiac: Yes (AAA 4 CM DIAMETER 02/26/22) Aneurysm, Hypertension Neurological: No Reproductive Disorders: No Genitourinary: No Gastrointestinal: No Musculoskeletal: Yes Degenerate Disk Disease, Chronic Back Pain Endocrine: Yes Diabetes, Non-Insulin dep HEENT: No Cancer: No Psychosocial: No Integumentary: No Blood Disorders: No Family Medical History Reviewed Nursing Family Hx No Pertinent Family Hx Physical Exam Vital Signs Vital Signs - First Documented 05/16/22 09:54 Temp 36.0 Pulse 81 Resp 18 B/P (MAP) 125/80 (95) Pulse Ox 97 O2 Delivery Room Air Capillary Refill : Less Than 3 Seconds Height, Weight, BMI Height: 5'10" Weight: 175lbs. oz. 79.590725it; 31.00 BMI Method:Estimated General Appearance: No Apparent Distress, WD/WN Neck: Full Range of Motion, Normal Inspection, Non Tender, Supple Respiratory: Chest Non Tender, Lungs Clear, Normal Breath Sounds, No Accessory Muscle Use Cardiovascular: Regular Rate, Rhythm, No Murmur Gastrointestinal: Normal Bowel Sounds, Non Tender, Soft Back: Normal Inspection, Vertebral Tenderness (Tenderness palpation mid to lower lumbar spine. No step-offs or deformity. Surgical scar well-healed.) Extremity: Normal Capillary Refill, Normal Inspection, Normal Range of Motion, Non Tender, No Calf Tenderness, Other (No knee swelling. Joint overall is stable. No bony tenderness. Neurovascular and sensory intact distally. Equal strength bilateral lower extremities. Normal reflexes.) Neurologic/Psychiatric: Alert, Oriented x3, No Motor/Sensory Deficits Skin: Normal Color, Warm/Dry Progress/Results/Core Measures Suspected Sepsis SIRS Temperature: Pulse: 81 Respiratory Rate: 18 Blood Pressure 125 /80 Mean: 95 Results/Orders Vital Signs/I&O 05/16/22 09:54 Temp 36.0 Pulse 81 Resp 18 B/P (MAP) 125/80 (95) Pulse Ox 97 O2 Delivery Room Air Capillary Refill : Less Than 3 Seconds Blood Pressure Mean: 95 Departure Communication (Admissions) Patient is hemodynamically stable with no red flag symptoms. This more chronic issue for him and he request pain control closely. No new injuries. No indication for acute imaging at this time. His knee that he tweaked is overall stable with no bony tenderness and he has been ambulatory on it for a week. No indication for x-rays. We discharged home in stable condition with close primary care and orthopedic follow-up. I prescribed him tramadol as well as Flexeril. He states tramadol was provided for him in the past. I advised him not to take this with any hydrocodone. He states understanding. He is discharged home in stable condition. Supportive care. Impression Primary Impression: Right hip pain Disposition: HOME, SELF-CARE Condition: Stable Departure-Patient Inst. Referrals: SENIA MARRERO DO (PCP/Family) Primary Care Physician Patient Instructions: Joint Pain Add. Discharge Instructions: Stop taking hydrocodone currently and start taking tramadol as you indicated that this is worked better for you in the past. Take the Flexeril as needed for muscle spasms and pain. This may make you drowsy so do not drive or make important decisions while taking it. You will need to call on Donaldo to schedule follow-up with your bone doctor. Return to the emergency department for any loss of bowel or bladder control, numbness where you wipe or if your symptoms change in any way concerning to you. All discharge instructions reviewed with patient and/or family. Voiced understanding. Scripts Cyclobenzaprine HCl (Cyclobenzaprine HCl) 5 Mg Tablet 5 MG PO TID for Muscle Spasms for 5 Days, #15 TAB Prov: VASILE HIGHTOWER DO 05/16/22 Tramadol HCl (Tramadol HCl) 50 Mg Tablet 50 MG PO Q4H PRN for PAIN for 3 Days, #18 TAB Prov: VASILE HIGHTOWER DO 05/16/22 VASILE HIGHTOWER DO May 16, 2022 10:21
[2022-05-16 10:32] VITALS: BP 126/82
== END 2022-05-16 10:32 | disposition home or self-care (01) ==
LOC: EDUNIT# 09:34 → ER 09:36
DX: M25.551 Pain in right hip (principal); M54.50 Low back pain, unspecified; F17.210 Nicotine dependence, cigarettes, uncomplicated; Z98.890 Other specified postprocedural states
CPT/HCPCS: 99281

== ENCOUNTER → 2022-06-23 | Outpatient (CLI) | payer MEDICARE, MEDICAID ==
[~2022-06-23] MED LIST changes: +CATHETER FLUSH 10 ML SYR IVP PRN; +CYCL5TAB PO; +REGADENOSON 0.4 MG/5 ML SYR (LEXISCAN) IV ONE; +TRM50T PO
[2022-06-23 09:15] VITALS: BP 102/69
--- NOTE | 2022-06-23 11:41 | Cardiology Stress Test Report ---
Stress Test Report Date of Procedure/Referring: Date of Procedure: June 23, 2022 PCP Senia Rice DO Admitting Physician Admitting Physician: Attending Physician: Elise Diego Baseline Heart Rate: 69 Baseline Blood Pressure: Blood Pressure Systolic: 102 Blood Pressure Diastolic: 69 Baseline Vitals Vital Signs Date Time Temp Pulse Resp B/P (MAP) Pulse Ox O2 Delivery O2 Flow Rate FiO2 06/23/22 09:15 69 102/69 (80) 95 Baseline EKG: Baseline EKG: NSR Summary After explaining the procedure to the patient, he signed a consent and then brought to the stress nuclear laboratory. Patient received 0.4 mg Lexiscan for stress test, ECG, heart rate and blood pressure were monitored continuously. Resting and stress dose of radio tracer were injected, imaging was acquired and reviewed in short axis, horizontal long axis and vertical long axis views. TID: 1.05 SSS: 4 SDS: 0 EF: 54 Patient tolerated Lexiscan well Diaphragmatic attenuation with fixed defect at the mid to apical inferior wall, overall there is no significant ischemia or infarction on SPECT images Normal left ventricular size, ejection fraction 54% Copy Copies To 1: SENIA RICE BASHAR J MD June 23, 2022 11:41
== END ==
LOC: CARD 07:33
PROVIDERS: ATTEND Physician Assistant
DX: I10 Essential (primary) hypertension (principal)
CPT/HCPCS: 78452; 93017

== ENCOUNTER 2022-09-24 09:36 | Outpatient (RCR) | payer MEDICARE, MEDICAID ==
[~2022-09-24 09:36] MED LIST changes: -CATHETER FLUSH 10 ML SYR IVP PRN; -REGADENOSON 0.4 MG/5 ML SYR (LEXISCAN) IV ONE
== END 2022-10-09 10:05 | disposition home or self-care (01) ==
PROVIDERS: ATTEND Pediatrics
DX: M48.02 Spinal stenosis, cervical region (principal)

== ENCOUNTER 2022-11-12 12:51 | Day surgery (SDC) | payer MEDICARE, MEDICAID ==
[~2022-11-12] VITALS: Ht 180.3 cm; Wt 108.2 kg
[~2022-11-12 12:51] MED LIST changes: +ATOR40TA70 PO; +METF-478 PO; +PANT40TA52 PO; +TRAZ-227 PO
[2022-11-12] MEDS ORDERED: LACTATED RINGERS 1,000 ML 1,000 ML IV STA (13:01)
[2022-11-12 13:10] VITALS: BP 122/69
[2022-11-12] MEDS ORDERED: HURRICAINE EXT TUBE (BENZOCAINE) XX PRN (13:15)
[2022-11-12] MEDS ORDERED: LIDOCAINE JELLY 2% 6 ML SYRINGE MM PRN (13:15)
--- NOTE | 2022-11-12 13:26 | Progress Note-Pre Operative ---
Pre-Operative Progress Note Date of Available H&P: Nov 12, 2022 Date H&P Reviewed: Nov 12, 2022 Time H&P Reviewed: 13:00 History & Physical: No changes noted Pre-Operative Diagnosis: ASHIVN San MD Nov 12, 2022 13:26
--- NOTE | 2022-11-12 13:27 | Discharge Inst-Surgical ---
D/C Lap Instructions-WILLA Follow Up Activity as tolerated High Fiber Diet 25g or more per day Avoid Alcohol, Caffeine, Spicy [place] and Acid foods. Drink 64 fluid oz or more of fluids per day. Symptoms to Report: Fever over 101 degree F, Nausea/Vomiting If any problems/questions: Contact your physician or go to Emergency Room ASHVIN CROUCH MD Nov 12, 2022 13:27
[2022-11-12] MEDS ORDERED: ONDANSETRON INJECTION 4 MG/2 ML (SDV) IVP PRN (13:30)
[2022-11-12] MEDS ORDERED: ONDANSETRON 4 MG ORAL DISSOLVE TABLET PO PRN (13:30)
[2022-11-12] MEDS ORDERED: LIDOCAINE JELLY 2% 6 ML SYRINGE ONE (15:44)
[2022-11-12 16:25] VITALS: BP 94/57
--- NOTE | 2022-11-12 16:28 | Anesthesia-General Post-Op ---
MAC Patient Condition Mental Status/LOC: Same as Preop Cardiovascular: Satisfactory Nausea/Vomiting: Absent Respiratory: Satisfactory Pain: Controlled Complications: Absent Post Op Complications Complications None Follow Up Care/Instructions Patient Instructions None needed. Anesthesiology Discharge Order Discharge Order Patient is doing well, no complaints, stable vital signs, no apparent adverse anesthesia problems. No complications reported per nursing. MANOJ MACAHDO CRNA Nov 12, 2022 16:28
[2022-11-12 16:30] VITALS: BP 92/55
[2022-11-12 16:35] VITALS: BP 98/58
[2022-11-12 17:05] VITALS: BP 125/69
--- NOTE | 2022-11-13 01:31 | OPERATIVE REPORT ---
DATE OF SERVICE: 11/12/2022 ATTENDING PRIMARY CARE PHYSICIAN: Dr. Wong Rice. PREOPERATIVE DIAGNOSIS: Screening colonoscopy. POSTOPERATIVE DIAGNOSES: Mild chronic stage II, external and internal hemorrhoids, multiple small polyps of the rectosigmoid junction as well as the distal sigmoid colon. The majority of polyps were less than 2-3 mm in size. Several were approximately 5-6 mm in size and pedunculated. PROCEDURE: Colonoscopy with snare polypectomy x3. SURGEON: Ashvin Crouch MD ANESTHESIA: Monitored anesthesia care. ESTIMATED BLOOD LOSS: Minimal. FINDINGS: Mild chronic stage II, external and internal hemorrhoids, multiple small polyps of the rectosigmoid junction as well as the distal sigmoid colon. The majority of polyps were less than 2-3 mm in size. Several were approximately 5-6 mm in size and pedunculated. DISPOSITION: The patient tolerated the procedure well. INDICATIONS: The patient is a 66-year-old male referred over to us for screening colonoscopy. He has not had a colonoscopy up to this point in his life. He also does report a family history of colon cancer with his brother having the disease and diagnosed at age 65 years of age. He does not report any major issues with diarrhea, nor constipation as well as no red blood per rectum, nor any dark tarry stools. He recently underwent a Hemoccult test, which was positive. DESCRIPTION OF PROCEDURE: The patient was brought to the endoscopy suite and laid in the left lateral decubitus position. After adequate IV pain and sedative medications and monitored anesthesia care, a digital rectal examination was performed. Mild chronic stage II, external and internal hemorrhoids were identified, not actively edematous nor inflamed and no bleeding. Normal sphincter tone was felt and there were no palpable masses. Prostate gland was palpable and appeared normal. The endoscope was then intubated into the anus, rectum gently insufflated. The endoscope was then advanced through the valves of Pierre of the rectum, there were multiple small what appeared to be hyperplastic polyps, all less than 3 mm in size. Two larger ones were identified and these were removed by snare and electrocautery at the base and sent to pathology. We then proceeded to the rectosigmoid junction where a 2 to 3 pedunculated polyps slightly larger in size, approximately 5 to 6 mm in size was identified. We were able to access two of these and remove them by snare polypectomy with visualization of good hemostasis. The endoscope was then advanced into the sigmoid colon where another pedunculated polyp was identified and this was removed by snare polypectomy with visualization of good hemostasis. There was a mild sigmoid diverticulosis. The endoscope was then advanced through the remainder of the descending, transverse and ascending colon to the cecum, which were normal. The endoscope was then slowly withdrawn while taking a second look and suctioning of residual air with no additional findings. The patient tolerated the procedure well. We will await the biopsy results; however, due to the sheer number of polyps, we will have him proceed with a followup colonoscopy within 3 years. We will also recommend a high-fiber diet with at least 30 g of fiber daily as well as significant amounts of water to promote soft consistency stools on a daily basis. Job ID: [id number] DocumentID: [id number] Dictated Date: 11/12/2022 16:27:11 [employer] Supervisor Date: 11/13/2022 01:29:00 Dictated By: ASHVIN CROUCH MD
== END 2022-11-12 17:05 | disposition home or self-care (01) ==
LOC: ENDO 12:51
PROVIDERS: ATTEND Surgery
DX: Z12.11 Encounter for screening for malignant neoplasm of colon (principal); D12.5 Benign neoplasm of sigmoid colon; D12.8 Benign neoplasm of rectum; K62.1 Rectal polyp; K64.1 Second degree hemorrhoids; K64.4 Residual hemorrhoidal skin tags; G47.33 Obstructive sleep apnea (adult) (pediatric); F17.210 Nicotine dependence, cigarettes, uncomplicated; Z80.0 Family history of malignant neoplasm of digestive organs